=== PATIENT | male | born 1955 | race Caucasian/White ===

== ENCOUNTER 2021-10-12 17:16 | Emergency (ER) | payer MEDICARE, SELFPAY ==
--- NOTE | ~2021-10-12 | CT_ITS ---
EXAMINATION: CT brain wo con DATE: 10/12/2021 18:03 INDICATION: confusion TECHNIQUE: Computed tomography (CT) of the head was performed without intravenous contrast. The mA wa s adjusted according to patient size. Iterative reconstruction technique was employed. The dose-lengt h product was 605.33 mGy-cm. COMPARISON: None FINDINGS: No acute intracranial hemorrhage or extra-axial fluid collection. No hydrocephalus, mass, or herniation. Hypodensity in the left basal ganglia, affecting the external capsule, caudate head, and lentiform nu cleus. Unremarkable dural venous sinus attenuation. No acute osseous abnormality. Trace bilateral mastoid effusions, otherwise the aerated spaces are clear. Mild atrophy and chronic white matter change. Atherosclerotic intracranial arterial calcifications. IMPRESSION: Acute/subacute left basal ganglia infarct. Result communicated to Dr. Guidry telephonically by Dr. Roman at 6:12 PM on 10/12/2021. Reviewed, dictated and finalized at location K. IMPRESSION: Acute/subacute left basal ganglia infarct. Result communicated to Dr. Guidry telephonically by Dr. Roman at 6:12 PM on .
[2021-10-12 17:18] VITALS: BP 183/85; PULSE 62; RESP 16; TEMP 36.1; O2SAT 100
[2021-10-12 17:28] VITALS: BP 167/77; PULSE 66; RESP 18; O2SAT 98
--- NOTE | 2021-10-12 17:29 | PC.NURSE ---
PT states i lost my speech . pt reports this began three days ago. Pt is a poor historian.
--- NOTE | 2021-10-12 17:35 | ECG_ITS ---
Measurements Intervals [place] Rate: 64 P: 35 NC: 160 QRS: 14 QRSD: 98 T: 30 QT: 403 QTc: 418 Interpretive Statements SINUS RHYTHM WITH SINUS ARRHYTHMIA NORMAL ECG NO PREVIOUS ECG AVAILABLE FOR COMPARISON Electronically Signed On 10-13-2021 11:15:48 CDT by Uri Saravia M.D.
--- NOTE | 2021-10-12 17:45 | ED.GENADULT ---
HPI - General Adult General Chief complaint: Unspecified Stated complaint: I have lost my ability to do math Time Seen by Provider: 10/12/21 17:25 Source: patient History of Present Illness HPI narrative: Patient presents with difficulty doing math. Reports he has had symptoms for approximately 3 days he was talking to a friend on phone was told that he should be evaluated because he is acting differently. He also reports ringing in his right ear he denied a headache at the time of my evaluation denies any recent cough, congestion, nausea, vomiting. Denies any past medical history but does report seeing a primary care provider in [place] on a regular basis. Related Data Home Medications Medication Instructions Recorded Confirmed No Home Medications 10/12/21 10/12/21 Allergies Allergy/AdvReac Type Severity Reaction Status Date / Time NKDA Allergy Mild Uncoded 07/10/06 09:16 Review of Systems Review of Systems: CONSTITUTIONAL: Denies fever, chills, or sweats. EYES: Denies visual changes, redness, or discharge. ENT: Denies rhinorrhea, congestion, sore throat, or otalgia. CARDIOVASCULAR: Denies chest pain, palpitations, or edema. RESPIRATORY: Denies cough or dyspnea. GASTROINTESTINAL: Denies abdominal pain, nausea, vomiting, or diarrhea. GENITOURINARY: Denies dysuria or hematuria. SKIN: Denies rash or itching. MUSCULOSKELETAL: Denies back pain, joint pain, or myalgia. NEUROLOGIC: Denies headache, numbness, dizziness, or weakness. PSYCHIATRIC: Denies anxiety or depression. All systems reviewed & are unremarkable except as noted in HPI and below PMFSH Social History Social History Smoking status: Never smoker Exam Narrative: GENERAL: Well-appearing, well-nourished, and in no acute distress. HEAD: Normocephalic, atraumatic. EYES: PERRLA and EOMI. ENT: Nares clear, no rhinorrhea or epistaxis. Mucous membranes moist. NECK: Supple. No masses. No JVD CHEST: Clear to auscultation. No respiratory distress. No wheezes rales or rhonchi HEART: Regular rate and rhythm. No murmur heard. Normal peripheral pulses. ABDOMEN: Soft, nontender, nondistended, normal active bowel sounds. EXTREMITIES: Normal range of motion. No edema. SKIN: Warm, dry, no rash. NEURO: Cranial nerves II through XII are intact patient is 5 out of 5 strength in all extremities sensation intact light touch in all extremities alert and oriented to self he is able to identify that he is in a hospital given multiple choice. He was able to identify the president when given multiple choice and believes the year is 2026 PSYCH: Normal mood and affect. Course Reevaluation(s) Reevaluation #1: Patient is comfortable with the transfer plan has been no significant change in his neurological exam. Date: 10/12/21 Time: 18:56 Consultations Consultation #1: Stroke team at [facility] consulted who accepted for admission. Date: 10/12/21 Time: 18:56 Vital Signs Vital signs: Vital Signs Temperature 36.1 C L 10/12/21 17:18 Pulse Rate 62 10/12/21 17:18 Respiratory Rate 16 10/12/21 17:18 Blood Pressure 183/85 H 10/12/21 17:18 Pulse Oximetry 100 10/12/21 17:18 Temperature 36.1 C L 10/12/21 17:18 Pulse Rate 73 10/12/21 21:10 Respiratory Rate 22 H 10/12/21 21:10 Blood Pressure 157/81 H 10/12/21 21:10 Pulse Oximetry 100 10/12/21 21:10 Medical Decision Making [facility] Narrative Medical decision making narrative: Patient presented with difficulty with math and word finding difficulty as well as confusion noted by a friend. Patient is disoriented on exam the remainder of neurological exam is reassuring. Labs and imaging obtained. CT scan was concerning for acute versus subacute infarct. Patient reports symptoms started 3 days ago favoring subacute process. Given CT findings and change in mental status patient benefit from further inpatient evaluation and imaging. No neurolo
[2021-10-12 17:50] LABS: Basophils Percent Auto 0.5 % (0.2-1.2); Eosinophils Absolute Auto 0.1 K/mm3 (0-0.3); Eosinophils Percent Auto 0.9 % (0-4.4); Hematocrit 47.3 % (42.0-52.0); Hemoglobin 16.2 g/dL (14.0-18.0); Immature Granulocyte Absolute 0.01 K/mm3 (0.00-0.031); Immature Granulocyte Percent A 0.2 % (0-0.5); Lymphocytes Absolute Auto 1.78 K/mm3 (0.9-3.2); Lymphocytes Percent Auto 31.5 % (18.3-44.2); Mean Corpuscular HGB Conc 34.2 g/dl (32-36); Mean Corpuscular Hemoglobin 29.9 pg (26-34); Mean Corpuscular Volume 87.4 fl (80-100); Mean Platelet Volume 9.4 fl (7.4-10.4); Monocytes Absolute Auto 0.3 K/mm3 (0.1-0.6); Monocytes Percent Auto 5.8 % (2.6-8.5); Neutrophils Absolute Auto 3.5 K/mm3 (1.3-6.7); Neutrophils Percent Auto 61.1 % (45.5-73.1); Platelet Count Result 245 k/mm3 (150-375); Red Blood Count 5.41 M/mm3 (4.6-6.20); Red Cell Distribution Width 13.4 % (11.5-14.5); White Blood Count 5.7 K/mm3 (4.5-10.0)
[2021-10-12] MEDS: SODIUM CHLORIDE 0.9% IV 500 ML 999 ML IV CONT (17:51)
--- NOTE | 2021-10-12 17:56 | PC.NURSE ---
Pt to ct via stretcher. Bedside report given to Tammy BELL
[2021-10-12 17:57] LABS: Glucose Point of Care 94 mg/dl (65-105)
[2021-10-12 17:59] LABS: Ammonia < 9 umol/L (9-30); Ethanol < 10 mg/dL (<10)
[2021-10-12 17:59] LABS: Lactic Acid Reflex 1.3 mmol/L (0.7-2.1)
[2021-10-12 18:01] LABS: Prothrombin Time 13.1 Seconds (11.1-14.7)
[2021-10-12 18:02] LABS: Partial Thromboplastin Time 28.8 SECONDS (22.3-36.8)
--- NOTE | 2021-10-12 18:04 | PC.NURSE ---
Assumed care of pt at this time. Pt in imaging.
[2021-10-12 18:38] VITALS: BP 166/70; PULSE 69; RESP 16; O2SAT 99
[2021-10-12 18:51] LABS: Alanine Aminotransferase 15 U/L (4-50); Albumin Level 4.5 g/dL (3.5-5.1); Alkaline Phosphatase 83 U/L (38-126); Anion Gap 11 mmol/L (8-16); Aspartate Amino Transferase 27 U/L (17-59); Bilirubin,Total 0.6 mg/dL (0.2-1.3); Blood Urea Nitrogen 17 mg/dL (9-20); Calcium 9.4 mg/dL (8.4-10.2); Carbon Dioxide 23 mmol/L (22-30); Chloride 105 mmol/L (98-107); Creatine Kinase 46 U/L (55-170); Estimated CRCL calculation 63 ml/min; Estimated Glomerular Filt Rate > 60; Glucose 89 mg/dL (65-110); Potassium 4.2 mmol/L (3.4-5.0); Sodium 139 mmol/L (137-145)
--- NOTE | 2021-10-12 19:12 | PC.NURSE ---
Pt unable to provide urine sample at this time. Per EDP, no need for straight catheter.
[2021-10-12 20:23] VITALS: BP 165/72; PULSE 62; RESP 20; O2SAT 100
[2021-10-12 21:10] VITALS: BP 157/81; PULSE 73; RESP 22; O2SAT 100
== END 2021-10-12 21:14 | disposition short-term general hospital (02) ==
PROVIDERS: Emergency Provider Emergency Medicine; PCP Emergency Medicine
DX: I63.9 Cerebral infarction, unspecified (principal)
CPT/HCPCS: 36415; 70450; 80053; 80307; 82140; 82550; 82948; 83605; 84443; 85025; 85610; 85730; 93005; 96360; 99285; J7040

== ENCOUNTER 2021-10-15 15:10 | Observation (INO) | payer MEDICARE, SELFPAY ==
[2021-10-15] VITALS (23 sets, daily range): BP systolic 138–154; BP diastolic 66–83; PULSE 57–87; RESP 11–19; TEMP 36.1–36.4; O2SAT 96–100; BMI 30.2
--- NOTE | ~2021-10-15 | CT_ITS ---
EXAMINATION: CT brain wo con DATE: 10/15/2021 16:07 INDICATION: Altered mental status. TECHNIQUE: Computed tomography (CT) of the head was performed without intravenous contrast. The mA wa s adjusted according to patient size. Iterative reconstruction technique was employed. The dose-lengt h product was 605.33 mGy-cm. COMPARISON: Head CT 10/12/2021 FINDINGS: There is an infarct involving the left basal ganglia and anterior limb left internal capsul e. There are small areas of cystic encephalomalacia in the left frontoparietal deep white matter. The re is no intracranial hemorrhage or abnormal mass lesion. The ventricles are normal in size. There is mild mucosal thickening in the paranasal sinuses. There are small mastoid effusions. The orbits are normal. IMPRESSION: 1. Infarct again seen involving the left basal ganglia and anterior limb left internal capsule, which may be subacute or chronic. 2. Small areas of chronic encephalomalacia in the left frontoparietal deep white matter. Reviewed, dictated and finalized at location B. IMPRESSION: 1. Infarct again seen involving the left basal ganglia and anterior limb left i nternal capsule, which may be subacute or chronic. 2. Small areas of chronic encephalomalacia in the left frontoparietal deep whit e matter.
--- NOTE | 2021-10-15 15:23 | PC.NURSE ---
Patient's nephew Aisha Bauer [phone]
--- NOTE | 2021-10-15 15:51 | ECG_ITS ---
Measurements Intervals [place] Rate: 64 P: 36 NH: 162 QRS: 24 QRSD: 96 T: 32 QT: 397 QTc: 412 Interpretive Statements SINUS RHYTHM NORMAL ECG COMPARED TO ECG 10/12/2021 17:50:28 NO SIGNIFICANT CHANGES Electronically Signed On 10-16-2021 11:38:51 CDT by Wilfrido Romero M.D.
[2021-10-15] MEDS: SODIUM CHLORIDE 0.9% IV 500 ML 999 ML IV CONT (16:29)
--- NOTE | 2021-10-15 16:39 | ED.AMS ---
HPI - Altered Mental Status General Chief Complaint: Altered Mental Status Stated Complaint: recent stroke, confusion Time Seen by Provider: 10/15/21 15:46 Source: family, RN notes reviewed and old records reviewed History of Present Illness HPI narrative: Patient brought in for altered mental status. Patient was seen a couple days ago diagnosed with concern for stroke and transferred to [facility]. Today he was brought in by his nephew. Reports he was called by the patient today and he requested him to help cut his grass and nephew came over to see him and the patient told the story that he left the hospital cannot tell the nephew the name of the hospital walked [place] on the [place] was picked up by an officer and brought to his house. Patient did seem confused to the nephew so we returned him to the ER for further evaluation. Related Data Home Medications Medication Instructions Recorded Confirmed No Home Medications 10/12/21 10/12/21 Allergies Allergy/AdvReac Type Severity Reaction Status Date / Time NKDA Allergy Mild Uncoded 07/10/06 09:16 Review of Systems Review of Systems: ROS unobtainable: Yes unobtainable due to medical condition (Patient does not answer questions appropriately) [facility] Social History Social History Smoking status: Never smoker Exam Narrative: GENERAL: Well-appearing, well-nourished, and in no acute distress. HEAD: Normocephalic, atraumatic. EYES: PERRLA and EOMI. ENT: Nares clear, no rhinorrhea or epistaxis. Mucous membranes moist. NECK: Supple. No masses. No JVD CHEST: Clear to auscultation. No respiratory distress. No wheezes rales or rhonchi HEART: Regular rate and rhythm. No murmur heard. Normal peripheral pulses. ABDOMEN: Soft, nontender, nondistended, normal active bowel sounds. EXTREMITIES: Normal range of motion. No edema. SKIN: Warm, dry, no rash. NEURO: No focal deficits. Alert PSYCH: Normal mood and affect. Course Reevaluation(s) Reevaluation #1: Patient with no significant change in his mental status I contacted [facility] they completed his stroke work-up and recommended aspirin and Plavix he was staying at that facility for rehab placement. Patient eloped because he was bored . Patient remains confused thinks it is 2025 he is unsure of where he is located at and is unsure of his situation. Due to his confusion patient does not demonstrate capacity and will need to be admitted for further evaluation and likely placement. Family is comfortable with inpatient plan. Case discussed with hospitalist team will admit for further evaluation Date: 10/15/21 Time: 20:10 Vital Signs Vital signs: Vital Signs Temperature 36.1 C L 10/15/21 15:17 Pulse Rate 87 10/15/21 15:17 Respiratory Rate 18 10/15/21 15:17 Blood Pressure 150/81 H 10/15/21 15:17 Pulse Oximetry 100 10/15/21 15:17 Temperature 36.1 C L 10/15/21 15:17 Pulse Rate 87 10/15/21 15:17 Respiratory Rate 18 10/15/21 15:17 Blood Pressure 150/81 H 10/15/21 15:17 Pulse Oximetry 100 10/15/21 15:17 MDM - Altered Mental Status MDM Narrative Medical decision making narrative: Patient is brought in by family for confusion. He was recently eloped from [facility] after completion of his stroke evaluation and pending rehab facility. Patient remains confused but there is been no significant change in his mental status from a few days ago. Due to his confusion patient will need rehab placement. Family is comfortable the inpatient plan and evaluation for placement. Lab Data Result diagrams: 10/15/21 16:32 10/15/21 16:32 Labs: Lab Results 10/15/21 10/15/21 10/15/21 Range/Units 16:32 16:32 16:32 WBC 4.5 (4.5-10.0) K/mm3 RBC 5.30 (4.6-6.20) M/mm3 Hgb 16.0 (14.0-18.0) g/dL Hct 45.6 (42.0-52.0) % MCV 86.0 (80-100) fl MCH 30.2 (26-34) pg MCHC 35.1
[2021-10-15 16:42] LABS: Basophils Percent Auto 0.7 % (0.2-1.2); Eosinophils Absolute Auto 0.1 K/mm3 (0-0.3); Eosinophils Percent Auto 1.6 % (0-4.4); Hematocrit 45.6 % (42.0-52.0); Immature Granulocyte Absolute 0.01 K/mm3 (0.00-0.031); Immature Granulocyte Percent A 0.2 % (0-0.5); Lymphocytes Absolute Auto 1.42 K/mm3 (0.9-3.2); Lymphocytes Percent Auto 31.8 % (18.3-44.2); Mean Corpuscular HGB Conc 35.1 g/dl (32-36); Mean Corpuscular Hemoglobin 30.2 pg (26-34); Mean Platelet Volume 9.4 fl (7.4-10.4); Monocytes Absolute Auto 0.3 K/mm3 (0.1-0.6); Monocytes Percent Auto 6.3 % (2.6-8.5); Neutrophils Absolute Auto 2.7 K/mm3 (1.3-6.7); Neutrophils Percent Auto 59.4 % (45.5-73.1); Platelet Count Result 227 k/mm3 (150-375); Red Cell Distribution Width 13.5 % (11.5-14.5); White Blood Count 4.5 K/mm3 (4.5-10.0)
[2021-10-15 16:49] LABS: Ammonia < 9 umol/L (9-30); Ethanol < 10 mg/dL (<10)
[2021-10-15 16:51] LABS: INR 1.1
[2021-10-15 16:52] LABS: Partial Thromboplastin Time 28.3 SECONDS (22.3-36.8)
[2021-10-15 17:02] LABS: Alanine Aminotransferase 16 U/L (4-50); Albumin Level 4.3 g/dL (3.5-5.1); Alkaline Phosphatase 85 U/L (38-126); Anion Gap 10 mmol/L (8-16); Aspartate Amino Transferase 24 U/L (17-59); Bilirubin,Total 0.6 mg/dL (0.2-1.3); Blood Urea Nitrogen 18 mg/dL (9-20); Calcium 9.4 mg/dL (8.4-10.2); Carbon Dioxide 22 mmol/L (22-30); Chloride 110 mmol/L (98-107); Creatine Kinase 83 U/L (55-170); Estimated CRCL calculation 62 ml/min; Estimated Glomerular Filt Rate > 60; Glucose 91 mg/dL (65-110); Potassium 3.6 mmol/L (3.4-5.0); Sodium 142 mmol/L (137-145)
--- NOTE | 2021-10-15 17:47 | PC.NURSE ---
Attempted to straight cath pt using size 15 and size 8 fr catheters. Unable to advance catheter. ERP aware.
--- NOTE | 2021-10-15 22:54 | PM.IMHP ---
H&P: HPI History of Present Illness Date/Time: 10/15/21 21:40 Chief Complaint: confusion, recent CVA Narrative: 66-year-old male with past medical history of recent CVA who was brought into the ER by family member due to confusion. The patient had been evaluated in our ER on the 12 of October due to complaints of not being able to do math that started on the . The patient had called a friend and was reportedly acting differently and the friend recommended the patient go to the ER for evaluation. The friend had noticed the patient having difficulty with confusion and word-finding. He had a CT scan performed which demonstrated acute versus subacute infarct in the left basal ganglia and evidence of and evidence of encephalomalacia from prior infarcts. The patient was subsequently transferred to [facility] for evaluation by the neurologic service. Evidently the patient had completed the evaluation for CVA including MRI at [facility]. Her it was being arranged for the patient to be discharged to rehab services when the patient eloped from the hospital. It is unclear how the patient left hospital but he states that he was walking along the highway and that the arson and bomb investigator picked him up in drove him home. Today the patient had called his nephew requesting that his nephew come to help cut his grass. The nephew came over and found the patient confused and realized that the patient should probably still be at the hospital so brought him in for evaluation. The patient reported that he eloped from [facility] also look as he was bored. The patient thought the year was 2025 upon initial evaluation in the ER. He was initially on aware of which hospital he was at but did correctly identify the hospital in year at the time of my evaluation which was shortly after the ER physician's evaluation. The patient was still confused as to the current situation. He could not remember why he was at the hospital and thought that we were keeping in the hospital because we were concerned about his diet and appetite. Both family and staff are concerned about the patient's capacity to make decisions. His short-term memory appears impaired. Review of Systems Review of Systems: The patient denies any significant review of systems. Twelve systems were reviewed but limited as patient is a poor historian. Patient clearly has significant recent short-term memory impairment. [facility] Past Medical History Medical History (Updated 10/16/21 @ 03:52 by Ninoska Reyes DO) CVA (cerebral vascular accident) Hepatitis C Surgical History Surgical History (Updated 10/16/21 @ 03:52 by Ninoska Reyes DO) No significant past surgical history Family History Family History (Updated 10/16/21 @ 03:52 by Ninoska Reyes DO) Other Unknown family medical history Social History Social History (Updated 10/16/21 @ 03:54 by Ninoska Reyes DO) Social History: The patient reported that he smoked for about 6 months when he was younger. The accuracy of this statement is unclear as patient is having difficulty with his memory. He reports that he drinks 2-3 beers once or twice a week. He denies any history of illicit substance use. He is single and lives alone. He does not have any children. He is retired airplane machinist supervisor. Smoking status: Former smoker Second hand tobacco smoke exposure: No Alcohol intake: unknown Substance use: unknown Spiritual care concerns: No Meds Home Medications and Allergies Home Medications Medication Instructions Recorded Confirmed Type No Home Medications 10/12/21 10/16/21 History Allergies Allergy/AdvReac Type Severity Reaction Status Date / Time NKDA Allergy Mild Unknown Uncoded 10/15/21 21:06 Vital Signs Vital Signs - 24 hr 10/15/21 15:17 10/15/21 15:44 10/15/21 15:45 Temperature 96.9 F L Pulse Rate 87 79 63 Respiratory Rate 18 18 17 Blood Pr
[2021-10-16 06:00] VITALS: BP 122/64
[2021-10-16 08:00] VITALS: O2SAT 98
[2021-10-16 08:34] VITALS: O2SAT 98
[2021-10-16] MEDS: CLOPIDOGREL BISULFATE 75 MG TABLET PO (09:25)
[2021-10-16] MEDS: ENOXAPARIN 40 MG/0.4 ML SYRINGE SUB-Q (09:25)
[2021-10-16] MEDS: ASPIRIN 81 MG ENTERIC TABLET PO (09:25)
[2021-10-16 10:38] LABS: Appearance Urine Cloudy (Clear); Bilirubin Urine 1+ (Negative); Blood Urine 2+ (Negative); Color Urine Yellow (Yellow); Glucose Urine UA Negative (Negative); Ketones Urine 1+ mg/dL (Negative); Leukocyte Esterase Ur Trace LEU/UL (Negative); Nitrate Urine Negative (Negative); Protein Urine Trace mg/dL (Negative); Specific Grav Ur >= 1.030 (1.001-1.035); Urobilinogen Urine 0.2 mg/dL (<2.0); pH Urine 5.5 (5.0-9.0)
[2021-10-16 10:43] LABS: Mucus Urine Heavy /lpf; RBC Urine 21-50 /hpf (0-2); Squamous Epithelial Cell Urine Rare /hpf (Few); WBC Urine 31-50 /hpf
[2021-10-16 10:44] LABS: Add Urine Microscopic? YES
[2021-10-16 10:51] LABS: Amphetamine Screen Urine Negative (Negative); Barbiturate Screen Urine Negative (Negative); Benzodiazepines Screen Urine Negative (Negative); Cannabinoid Screen Urine Positive (Negative); Cocaine Screen Urine Negative (Negative); Methadone Screen Urine Negative (Negative); Opiate Screen Urine Negative (Negative); Phencyclidine Screen Urine Negative (Negative)
[2021-10-16 14:00] VITALS: BP 131/57; PULSE 73; RESP 18; TEMP 34.7; O2SAT 99
--- NOTE | 2021-10-16 14:51 | PM.IMPN ---
Progress Note: A&P Assessment and Plan (1) Recent cerebrovascular accident (CVA): Code(s): Z86.73 - Personal history of transient ischemic attack (TIA), and cerebral infarction without residual deficits Status: Acute (2) Altered mental status: Qualifiers: Altered mental status type: unspecified Qualified Code(s): R41.82 - Altered mental status, unspecified Code(s): R41.82 - Altered mental status, unspecified Status: Acute Additional Plan The patient had recent CVA and had complete workup at [facility]. Records were requested from outside facility. CT did a demonstrated stable infarct of the left basal ganglia and anterior limb of the left internal capsule which may be subacute or chronic. In small areas of encephalomalacia in the left frontal parietal deep white matter. The patient was being prepared to be sent to a rehab facility from [facility] but the patient eloped from the hospital. Today the patient also did not want to stay in the hospital but he does not have the capacity to make that decision. Patient is alert and oriented x3 but is not aware of the situation. When asked why we wanted to keep him in the hospital even after was explained to him that he was having issues with his memory he stated that we wanted to keep him in the hospital to monitor his diet. PT and OT will be consulted for evaluation rehab placement. Care coordination has been consulted. ER physician did discuss the patient's case with the neurologic service at [facility]. They stated that they were going to discharge the patient on Plavix and low-dose aspirin. These medications have been ordered. Patient has been admitted as observation status. 10/16/2021 interval history: patient remains clinically stable is still very confused unable to provide any review of symptom or details, he seems to realize that there is a problem with his memory, patient repeat CT scan of the head did not show any significant change compared to CT scan of the head on 10/12. will have a PT OT evaluate the patient. Subjective Date/time seen: 10/16/21 14:51 HPI-Narrative: 66-year-old male with past medical history of recent CVA who was brought into the ER by family member due to confusion. The patient had been evaluated in our ER on the 12 of October due to complaints of not being able to do math that started on the . The patient had called a friend and was reportedly acting differently and the friend recommended the patient go to the ER for evaluation. The friend had noticed the patient having difficulty with confusion and word-finding. He had a CT scan performed which demonstrated acute versus subacute infarct in the left basal ganglia and evidence of and evidence of encephalomalacia from prior infarcts. The patient was subsequently transferred to [facility] for evaluation by the neurologic service. Evidently the patient had completed the evaluation for CVA including MRI at [facility]. Her it was being arranged for the patient to be discharged to rehab services when the patient eloped from the hospital. It is unclear how the patient left hospital but he states that he was walking along the highway and that the scorekeeper picked him up in drove him home. Today the patient had called his nephew requesting that his nephew come to help cut his grass. The nephew came over and found the patient confused and realized that the patient should probably still be at the hospital so brought him in for evaluation. The patient reported that he eloped from [facility] also look as he was bored. The patient thought the year was 2025 upon initial evaluation in the ER. He was initially on aware of which hospital he was at but did correctly identify the hospital in year at the time of my evaluation which was shortly after the ER physician's evaluation. The patient was still confused as to the curr
--- NOTE | 2021-10-16 15:47 | PM.DS ---
DS: Admitting Diagnosis Discharge Date 10/16/2021 Admitting Diagnosis confusion, recent CVA DS: Discharge Diagnosis Discharge Diagnosis (1) Recent cerebrovascular accident (CVA): Code(s): Z86.73 - Personal history of transient ischemic attack (TIA), and cerebral infarction without residual deficits Status: Acute (2) Altered mental status: Qualifiers: Altered mental status type: unspecified Qualified Code(s): R41.82 - Altered mental status, unspecified Code(s): R41.82 - Altered mental status, unspecified Status: Acute DS: Summary Hospital Course Reason for hospitalization: Chief Complaint: confusion, recent CVA Narrative: 66-year-old male with past medical history of recent CVA who was brought into the ER by family member due to confusion. The patient had been evaluated in our ER on the 12 of October due to complaints of not being able to do math that started on the . The patient had called a friend and was reportedly acting differently and the friend recommended the patient go to the ER for evaluation. The friend had noticed the patient having difficulty with confusion and word-finding. He had a CT scan performed which demonstrated acute versus subacute infarct in the left basal ganglia and evidence of and evidence of encephalomalacia from prior infarcts. The patient was subsequently transferred to [facility] for evaluation by the neurologic service. Evidently the patient had completed the evaluation for CVA including MRI at [facility]. Her it was being arranged for the patient to be discharged to rehab services when the patient eloped from the hospital. It is unclear how the patient left hospital but he states that he was walking along the highway and that the associate consulting engineer picked him up in drove him home. Today the patient had called his nephew requesting that his nephew come to help cut his grass. The nephew came over and found the patient confused and realized that the patient should probably still be at the hospital so brought him in for evaluation. The patient reported that he eloped from [facility] also look as he was bored. The patient thought the year was 2025 upon initial evaluation in the ER. He was initially on aware of which hospital he was at but did correctly identify the hospital in year at the time of my evaluation which was shortly after the ER physician's evaluation. The patient was still confused as to the current situation. He could not remember why he was at the hospital and thought that we were keeping in the hospital because we were concerned about his diet and appetite. Both family and staff are concerned about the patient's capacity to make decisions. His short-term memory appears impaired. Hospital Course: 10/16/2021 interval history: patient remains clinically stable is still very confused unable to provide any review of symptom or details, he seems to realize that there is a problem with his memory, patient repeat CT scan of the head did not show any significant change compared to CT scan of the head on 10/12. will have a PT OT evaluate the patient. Patient is being discharged with his nephew who will stay with the patient and monitor, patient to follow up with his primary care provider as soon as possible, patient is instructed is any symptoms redevelop to go to nearest ER. Status at Discharge Functional status at discharge: uses cane/walker Overall status at discharge: patient is not back to baseline Time Spent with Patient Time attestation: Total time spent providing and/or coordinating discharge services: Patient was seen and examined at the time of the discharge Condition at discharge is stable Code status: Full code. Time spent preparing discharge summary, discharge medications, discussing discharge planning with returned case inspector and patient is 35 minutes. Exam Narrative: Patient is comfortable, NAD HEENT: eyes are manuela
== END 2021-10-16 16:54 | disposition home or self-care (01) ==
LOC: ANHED 20:14 → ANH3MEDSUR 10-16 10:48
PROVIDERS: Admitting Provider Internal Medicine; Emergency Provider Emergency Medicine; PCP Emergency Medicine; Visit Provider Family Medicine
DX: R41.82 Altered mental status, unspecified (principal); Z86.73 Personal history of transient ischemic attack (TIA), and cerebral infarction without residual deficits; G93.89 Other specified disorders of brain; Z87.891 Personal history of nicotine dependence
CPT/HCPCS: 36415; 51701; 70450; 80053; 80307; 81001; 82140; 82550; 85025; 85610; 85730; 87086; 93005; 96360; 96372; 97161; 97166; 99285; A9270; G0378; J1650; J7040

== ENCOUNTER 2022-07-15 12:22 | Inpatient (IN) | payer MEDICARE, SELFPAY ==
[2022-07-15] VITALS (7 sets, daily range): BP systolic 145–190; BP diastolic 69–94; PULSE 65–108; RESP 14–18; TEMP 35.7–36.8; O2SAT 99–100; BMI 29.0
--- NOTE | ~2022-07-15 | XR_ITS ---
Portable chest x-ray Comparison: None Clinical History: Cough Findings: Lungs are clear, without focal consolidation or pleural effusion. Cardiomediastinal silho uette is unremarkable. Bones and soft tissues are unremarkable. Impression: Normal chest. Reviewed, dictated and finalized at location . UCT SUPPORT ANALYST Impression: Normal chest.
--- NOTE | ~2022-07-15 | CT_ITS ---
EXAMINATION: CTA brain carotid DATE: 07/15/2022 14:58 INDICATION: Left parietal lobe infarct. TECHNIQUE: Computed tomographic angiography (CTA) of the head was performed with 100 mL Omnipaque-350 intravenous contrast. CTA of the neck was performed with intravenous contrast. Automated exposure co ntrol and iterative reconstruction technique were employed. The dose-length product was 1136.45 mGy-c m. Maximum intensity projection and volume rendered 3D-reconstructions were created by the technologi st on a separate workstation. COMPARISON: Head CT 07/15/2022, 10/15/2021 FINDINGS: HEAD CTA: There is old infarct involving the left basal ganglia and anterior limb left internal capsu le. There is an infarct in left parietal lobe. There is no intracranial hemorrhage or abnormal mass l esion. There is ex vacuo dilatation of anterior body and frontal horn of left lateral ventricle. Ther e is mild mucosal thickening in the paranasal sinuses. The mastoid air cells are normal. The orbits a re normal. The vertebral arteries are codominant. There is no significant stenosis of basilar artery or the posterior cerebral arteries. There is no significant stenosis of the intracranial internal car otid arteries or anterior cerebral arteries. There is severe stenosis of left M1 middle cerebral edward ry. Anterior communicating artery is normal. The posterior communicating arteries are normal. There i s no aneurysm. NECK CTA: There is mild scarring at the lung apices. There are nodules in the thyroid measuring up to 1.7 cm on the left. There are no pathologically enlarged lymph nodes. There is a severe stenosis of the vertebral arteries. There is plaque in the proximal internal carotid arteries. There is 0% stenos is of the proximal right internal carotid artery relative to normal distal artery lumen diameter (AGUSTIN CET criteria). There is 0% stenosis of the proximal left internal carotid artery relative to normal d istal artery lumen diameter. There is mild cervical spondylosis. IMPRESSION: 1. Infarct in left parietal lobe, new from 10/15/2021, likely acute or subacute. 2. Severe stenosis of left M1 middle cerebral artery suspicious for an embolus. I called this result to Dr. Wood. 3. Old infarct involving the left basal ganglia and anterior limb left internal capsule. 4. 0% stenosis of the proximal internal carotid arteries relative to normal distal artery lumen diame ters (NASCET criteria). Reviewed, dictated and finalized at location A. SHAKER IMPRESSION: 1. Infarct in left parietal lobe, new from 10/15/2021, likely acute or subacute. 2. Severe stenosis of left M1 middle cerebral artery suspicious for an embolus. I called this result to Dr. Wood. 3. Old infarct involving the left basal ganglia and anterior limb left internal capsule. 4. 0% stenosis of the proximal internal carotid arteries relative to normal dis darrell artery lumen diameters (NASCET criteria).
--- NOTE | ~2022-07-15 | CT_ITS ---
EXAMINATION: CT brain wo con DATE: 07/15/2022 13:31 INDICATION: Confusion for one week. Altered mental status. TECHNIQUE: Computed tomography (CT) of the head was performed without intravenous contrast. The mA wa s adjusted according to patient size. Iterative reconstruction technique was employed. Exam dose: 60 5.33 mGy-cm total exam DLP. COMPARISON: 10/15/2021 CT brain FINDINGS: Prominent chronic lacunar infarct involving left basal ganglia and left frontal periventric ular area with compensatory dilatation of the left frontal horn. There is focal diminished attenuation in the posterior left parietal cerebral hemisphere consistent w ith recent or subacute cerebrovascular accident. No intracranial mass lesion or hemorrhage, midline shift or significant mass effect effect is noted. Bilateral carotid siphon internal carotid artery calcifications. There is nonspecific diminished atte nuation of the cerebral white matter, likely due to chronic small vessel ischemic changes. No subdural or epidural hematoma. Persistence of the metopic suture, anatomic variant. The paranasal sinuses and mastoid air cells are unremarkable. No fracture or bone destruction of the cranial vault. IMPRESSION: Recent or subacute focal infarct in the posterior left parietal area Chronic lacunar infarct of left basal ganglia and frontal periventricular area Cerebral atherosclerosis and chronic small vessel ischemic changes of cerebral white matter Reviewed, dictated and finalized at Location A. Reviewed, dictated and finalized at location L. CLUB TRAVEL COUNSELOR IMPRESSION: Recent or subacute focal infarct in the posterior left parietal ar ea Chronic lacunar infarct of left basal ganglia and frontal periventricular area Cerebral atherosclerosis and chronic small vessel ischemic changes of cerebral white matter
--- NOTE | ~2022-07-15 | MR_ITS ---
EXAMINATION: MR brain/brain stem wo con DATE: 07/16/2022 15:59 INDICATION: Acute stroke. TECHNIQUE: Magnetic resonance imaging (MRI) of the brain and brainstem was performed without intraven ous contrast. COMPARISON: Brain MRI 07/15/2022 FINDINGS: There are patchy areas of acute infarct involving left temporal lobe, left parietal lobe, l eft frontoparietal region, and left temporal occipital region in the expected distribution of left mi ddle cerebral artery. There is an old infarct involving the left basal ganglia and anterior limb left internal capsule with old blood products. There are scattered areas of nonspecific increased T2-weig hted signal intensity in the cerebral white matter. There is no abnormal mass lesion. There is ex vac uo dilatation of left lateral ventricle. The orbits are normal. There are mucous retention cysts in t he maxillary sinuses. The mastoid air cells are normal. IMPRESSION: 1. Patchy areas of acute infarct involving left temporal lobe, left parietal lobe, left frontal parie darrell region, and left temporal occipital region. 2. Old infarct involving the left basal ganglia and anterior limb left internal capsule. 3. Mild nonspecific cerebral white matter disease, which likely represents chronic small vessel ische frederick disease. Reviewed, dictated and finalized at location A. UNTING REPRESENTATIVE IMPRESSION: 1. Patchy areas of acute infarct involving left temporal lobe, left parietal lo be, left frontal parietal region, and left temporal occipital region. 2. Old infarct involving the left basal ganglia and anterior limb left internal capsule. 3. Mild nonspecific cerebral white matter disease, which likely represents benchroom shop optician toño small vessel ischemic disease.
--- NOTE | 2022-07-15 13:15 | ED.AMS ---
HPI - Altered Mental Status General Chief Complaint: Altered Mental Status Stated Complaint: Pt comes from office. sister states has ams Time Seen by Provider: 07/15/22 12:52 History of Present Illness HPI narrative: Patient is a 67-year-old male presenting with altered mental status. Patient's sister states that for the last week he has been increasingly confused. States that he could not figure out how to access any of his bank accounts. States that he had a similar episode last year and they think he might have had a mini stroke at that time. Patient currently denies any complaints. He denies chest pain, headache, numbness or weakness, vision changes, abdominal pain, vomiting, shortness of breath. He is oriented to self and place but not time. When asked about his hospitalization last year, patient states it was like a man cave, it was not like a hospital so I left . Related Data Home Medications Medication Instructions Recorded Confirmed No Home Medications 07/15/22 07/15/22 Allergies Allergy/AdvReac Type Severity Reaction Status Date / Time NKDA Allergy Mild Unknown Uncoded 10/15/21 21:06 Review of Systems Review of Systems: All systems reviewed & are unremarkable except as noted in HPI and below PMFSH Past Medical History Medical History Cerebrovascular accident Dyslipidemia Hepatitis C Hypertension Surgical History Surgical History No significant past surgical history Family History Family History Other Unknown family medical history Social History Social History Social History: Patient states he lives in his own home and [place]. He is single with no children. Brother Chris and sister Dianelys live nearby. He has a nephew that helps out if needed as well. 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 Smoked briefly as a young man. Denies alcohol abuse, drinks maybe 2 to 3 beers a couple of times a week. Occasional marijuana use. Surrogate decision maker: Alyce Bauer (nephew). Code status: Full code. Spiritual care concerns: No Exam Narrative: GENERAL: Well-appearing, well-nourished, and in no acute distress. HEAD: Normocephalic, atraumatic. EYES: PERRLA and EOMI. ENT: Nares clear, no rhinorrhea or epistaxis. Mucous membranes moist. NECK: Supple. CHEST: Clear to auscultation. No respiratory distress. HEART: Regular rate and rhythm. No murmur heard. Normal peripheral pulses. ABDOMEN: Soft, nontender, nondistended, normal active bowel sounds. EXTREMITIES: Normal range of motion. No edema. SKIN: Warm, dry, no rash. NEURO: Alert and oriented x2, states it is May when asked the year; 5 out of 5 strength in all extremities, no sensory deficit, no facial droop, no dysarthria or aphasia PSYCH: Flat affect Course Vital Signs Vital signs: Vital Signs Temperature 98.3 F 07/15/22 12:42 Pulse Rate 108 H 07/15/22 12:42 Respiratory Rate 14 07/15/22 12:42 Blood Pressure 190/94 H 07/15/22 12:42 Pulse Oximetry 99 07/15/22 12:42 Oxygen Delivery Room Air 07/15/22 12:42 Temperature 98.1 F 07/18/22 06:00 Pulse Rate 79 07/18/22 06:00 Respiratory Rate 16 07/18/22 06:00 Blood Pressure 118/58 L 07/18/22 06:00 Pulse Oximetry 97 07/18/22 06:00 Oxygen Delivery Room Air 07/17/22 21:18 MDM - Altered Mental Status MDM Narrative Medical decision making narrative: Patient is a 67-year-old male presenting with confusion. Patient is hypertensive, otherwise vitals are within normal limits. CT head shows acute versus subacute infarct in left parietal area. Spoke with neurology who recommends CTA head neck. CTA head neck is concerning for severe stenosis involving left M1, concerning for an embolus. I spoke with Dr. Maloney at [facility] with their neuro stroke team who
[2022-07-15 13:52] LABS: Basophils Percent Auto 0.4 % (0.2-1.2); Eosinophils Percent Auto 0.6 % (0-4.4); Hematocrit 46.6 % (42.0-52.0); Hemoglobin 16.3 g/dL (14.0-18.0); Immature Granulocyte Absolute 0.02 K/mm3 (0.00-0.031); Immature Granulocyte Percent A 0.4 % (0-0.5); Mean Corpuscular Hemoglobin 29.7 pg (26-34); Mean Platelet Volume 10.2 fl (7.4-10.4); Monocytes Absolute Auto 0.2 K/mm3 (0.1-0.6); Monocytes Percent Auto 3.4 % (2.6-8.5); Neutrophils Absolute Auto 4.2 K/mm3 (1.3-6.7); Neutrophils Percent Auto 78.2 % (45.5-73.1); Platelet Count Result 236 k/mm3 (150-375); Red Blood Count 5.48 M/mm3 (4.6-6.20); Red Cell Distribution Width 13.6 % (11.5-14.5); White Blood Count 5.3 K/mm3 (4.5-10.0)
[2022-07-15 14:04] LABS: Alanine Aminotransferase 22 U/L (6-50); Albumin Level 4.5 g/dL (3.5-5.1); Alkaline Phosphatase 76 U/L (38-126); Anion Gap 6 mmol/L (8-16); Aspartate Amino Transferase 26 U/L (17-59); Bilirubin,Total 0.6 mg/dL (0.2-1.3); Blood Urea Nitrogen 12 mg/dL (9-20); Calcium 9.3 mg/dL (8.4-10.2); Carbon Dioxide 28 mmol/L (22-30); Chloride 103 mmol/L (98-107); Estimated CRCL calculation 56 ml/min; Estimated Glomerular Filt Rate > 60; Ethanol < 10 mg/dL (<10); Glucose 137 mg/dL (65-110); Potassium 3.7 mmol/L (3.4-5.0); Sodium 137 mmol/L (137-145)
[2022-07-15 14:06] LABS: INR 1.1; Partial Thromboplastin Time 28.2 SECONDS (22.3-36.8); Prothrombin Time 13.3 Seconds (11.1-14.7)
[2022-07-15 14:14] LABS: Ammonia < 9 umol/L (9-30)
[2022-07-15 14:41] LABS: Appearance Urine Cloudy (Clear); Bilirubin Urine Negative (Negative); Blood Urine Trace-intact (Negative); Color Urine Yellow (Yellow); Glucose Urine UA Negative (Negative); Ketones Urine Negative (Negative); Leukocyte Esterase Ur Negative LEU/UL (Negative); Nitrate Urine Negative (Negative); Protein Urine Negative (Negative); Urobilinogen Urine 0.2 mg/dL (<2.0); pH Urine 7.5 (5.0-9.0)
[2022-07-15 14:53] LABS: Amphetamine Screen Urine Negative (Negative); Barbiturate Screen Urine Negative (Negative); Benzodiazepines Screen Urine Negative (Negative); Cannabinoid Screen Urine Positive (Negative); Cocaine Screen Urine Negative (Negative); Methadone Screen Urine Negative (Negative); Opiate Screen Urine Negative (Negative); Phencyclidine Screen Urine Negative (Negative)
[2022-07-15 14:55] LABS: Amorphous Sediment Urine Moderate; Mucus Urine Rare /lpf; RBC Urine 21-50 /hpf (0-2); Squamous Epithelial Cell Urine Occasional /hpf (Few); WBC Urine 0-3 /hpf
[2022-07-15 15:05] LABS: Add Urine Microscopic? YES
--- NOTE | 2022-07-15 16:35 | PC.NURSE ---
hiliary pa at bedside for exam. pt remains confused to time and place.
--- NOTE | 2022-07-15 16:35 | PC.NURSE ---
pt ambulatory to bathroom without difficulty.
[2022-07-15 17:13] LABS: Influenza A QL RT-PCR Negative (Negative); Influenza B QL RT-PCR Negative (Negative); SARS-CoV-2 RNA PCR Negative
--- NOTE | 2022-07-15 19:00 | PM.IMHP ---
H&P: HPI History of Present Illness Date/Time: 07/15/22 17:00 Chief Complaint: Confusion. Narrative: This is a 67-year-old male with history of stroke who presented to the emergency department with his for evaluation of confusion. He is an unreliable historian and majority of the following is supplemented via a review of his electronic medical records as well as discussions with his sister. The patient had a stroke and September 2021 and he had issues with confusion at that time which apparently improved within a month or so. He was discharged under the care of his nephew but is my understanding that he is now living alone. The past 1 week he has once again become confused and he seems aware of the fact. For example he has been having difficulties requiring out how to access his bank account and paying bills. He has no specific complaints however and he denies headache, vertigo, auditory and visual changes, facial droop, difficulty speaking and swallowing, sensations of racing heart, palpitations, chest pain, shortness a breath, nausea, vomiting, diarrhea, dysuria. He has not had any falls or head trauma. He denies alcohol and illicit substance use. Blood pressure was 190/94 on arrival to the ED. Labs were reviewed and they are pretty unremarkable. He was positive for cannabinoids, ethyl alcohol level less than 10. He was negative for influenza and COVID. Brain CT showed a recent or subacute focal infarct in the posterior left parietal area and a subsequent CTA of the head and neck showed severe stenosis of left M1 middle cerebral artery suspicious for embolus. ED physician spoke with Dr. Maloney with the stroke team at [facility]. He did not feel the patient was a candidate for intervention at this time given the length of his symptoms and he recommends starting dual anti-platelet therapy. Review of Systems Review of Systems: Twelve systems were reviewed. He denies fever, chills, and sweats. Reports a mild frontal headache. Occasional balance issues though it sounds as though that was present with his previous stroke. He has not had any recent falls. [facility] Past Medical History Medical History (Updated 07/15/22 @ 22:48 by Sally Nettles PA-C) Cerebrovascular accident Dyslipidemia Hepatitis C Hypertension Surgical History Surgical History No significant past surgical history Family History Family History Other Unknown family medical history Social History Social History (Updated 07/15/22 @ 22:44 by Sally Nettles PA-C) Social History: Patient states he lives in his own home and [place]. He is single with no children. Brother Chris and sister Dianelys live nearby. He has a nephew that helps out if needed as well. Retired airline metal fitters and machinists. Smoked briefly as a young man. Denies alcohol abuse, drinks maybe 2 to 3 beers a couple of times a week. Occasional marijuana use. Surrogate decision maker: Alyce Bauer (nephew). Code status: Full code. Spiritual care concerns: No Meds Home Medications and Allergies Home Medications Medication Instructions Recorded Confirmed Type No Home Medications 07/15/22 07/15/22 History Allergies Allergy/AdvReac Type Severity Reaction Status Date / Time NKDA Allergy Mild Unknown Uncoded 10/15/21 21:06 Vital Signs Vital Signs - 24 hr 07/15/22 12:42 07/15/22 13:07 07/15/22 13:08 Temperature 98.3 F Pulse Rate 108 H 100 92 Respiratory Rate 14 16 Blood Pressure 190/94 H 176/86 H Pulse Oximetry 99 100 Oxygen Delivery Room Air 07/15/22 17:00 07/15/22 19:12 07/15/22 20:00 Temperature 96.3 F L Pulse Rate 80 65 73 Respiratory Rate 16 18 Blood Pressure 145/69 H 182/86 H Pulse Oximetry 99 Oxygen Delivery 07/15/22 22:00 Temperature 98.1 F Pulse Rate 73 Respiratory Rate 16 Blood Pressure 168/81 H Pulse Oximetry 99 Oxygen Delivery
--- NOTE | 2022-07-15 19:07 | PC.NURSE ---
This patient, Galo Gurrola, was admitted to Medical Room 346-01. Patient/family oriented to hospital policies and general routines including ID bracelet, bed and alarms, visiting hours, pain management, procedures, bathroom and other care routines, personal items, smoking policy, room service/diet, and visiting hours. Information on how to activate the Rapid Response Team has been discussed. Patient/Family are encouraged to report perceived risks to care and to ask questions if they do not understand what they are told or what they should do.
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
[2022-07-16] VITALS (8 sets, daily range): BP systolic 126–182; BP diastolic 61–84; PULSE 47–78; RESP 16; TEMP 36.6–36.7; O2SAT 99–100
--- NOTE | 2022-07-16 | ECHO_ITS ---
Patient Info Name: Galo Gurrola Age: 67 years : 1955 Gender: Male Ht: 69 in Wt: 196 lbs BSA: 2.10 m2 HR: 58 bpm BP: 159 / 79 mmHg Technical Quality: Fair Exam Date: 07/16/2022 2:14 PM Exam Location: [facility] Room: [facility] Patient Status: Inpatient Admit Date: 07/15/2022 Staff Ordering Physician: Ailin Richard MD Hatch Supervisor: Jamia Head RDCS Attending Provider: Chino Perry MD Exam Type: CA echo doppler w bubble study Study Info Indications - acute stroke Complete two-dimensional, color flow and Doppler transthoracic echocardiogram is performed with agitated saline. Summary 1. Left ventricular chamber dimension is normal. 2. Left ventricular systolic function is normal, estimated at 65-70%. 3. The left ventricular diastolic function is grade I diastolic dysfunction. 4. E/e' 9 is minimally elevated. 5. There is mild aortic valve sclerosis. 6. No pulmonary hypertension, estimated pulmonary arterial systolic pressure is 21 mmHg. Left Ventricle E/e' 9 is minimally elevated. Left ventricular chamber dimension is normal. Left ventricular systolic function is normal, estimated at 65-70%. The left ventricular diastolic function is grade I diastolic dysfunction. Right Ventricle Right ventricular chamber dimension is normal. Right ventricular systolic function is normal. Left Atria Left atrial chamber dimension is normal. Right Atria Right atrial chamber dimension is normal. Atrial Septum Agitated saline injection with and without valsalva maneuver opacified right side cardiac chambers without shunt to left side cardiac chambers. Intact interatrial septum visualized by 2D and agitated saline imaging. Aortic Valve The aortic valve is trileaflet. There is mild aortic valve sclerosis. There is no aortic valve stenosis. There is no aortic valve regurgitation. Pulmonic Valve There is no pulmonic regurgitation. Mitral Valve There is no mitral valve stenosis. There is no mitral valve regurgitation. Tricuspid Valve There is no tricuspid valve regurgitation. No pulmonary hypertension, estimated pulmonary arterial systolic pressure is 21 mmHg. Pericardium/Pleural There is no pericardial effusion. Inferior Vena Cava Normal inferior vena cava with >50% collapse upon inspiration consistent with normal right atrial pressure, 5 mmHg. Aorta The aortic root size at the sinus of Valsalva is normal. Left Ventricular Outflow Tract Name Value Normal LVOT 2D LVOT Diameter 2.1 cm LVOT Doppler LVOT Peak Gradient 5 mmHg LVOT Mean Gradient 3 mmHg LVOT VTI 26 cm LVOT VTI/AV VTI Ratio 0.8 LVOT Stroke Volume 90 ml LVOT CO 17.7 l/min LVOT CI 8.4 l/min/m2 Pulmonic Valve Name Value Normal
[2022-07-16] MEDS: ASPIRIN 81 MG CHEWABLE TABLET 324 MG PO (00:04)
[2022-07-16 00:39] LABS: LDL Cholesterol Direct 82 mg/dL
[2022-07-16 00:41] LABS: HDL Direct 42 mg/dL; Triglycerides 76 mg/dL (<150)
[2022-07-16 02:45] LABS: Cholesterol 152 mg/dL (0-200)
[2022-07-16 06:12] LABS: Hemoglobin 14.4 g/dL (14.0-18.0); Mean Corpuscular HGB Conc 35.1 g/dl (32-36); Mean Corpuscular Hemoglobin 29.5 pg (26-34); Mean Platelet Volume 9.1 fl (7.4-10.4); Platelet Count Result 225 k/mm3 (150-375); Red Blood Count 4.88 M/mm3 (4.6-6.20); Red Cell Distribution Width 13.4 % (11.5-14.5)
[2022-07-16 06:26] LABS: Anion Gap 2 mmol/L (8-16); Blood Urea Nitrogen 14 mg/dL (9-20); Calcium 8.8 mg/dL (8.4-10.2); Carbon Dioxide 28 mmol/L (22-30); Chloride 108 mmol/L (98-107); Estimated CRCL calculation 68 ml/min; Estimated Glomerular Filt Rate > 60; Glucose 93 mg/dL (65-110); Magnesium 2.2 mg/dL (1.6-2.3); Potassium 3.6 mmol/L (3.4-5.0); Sodium 138 mmol/L (137-145)
[2022-07-16] MEDS: CLOPIDOGREL BISULFATE 75 MG TABLET PO (10:10)
[2022-07-16] MEDS: ASPIRIN 81 MG ENTERIC TABLET PO (10:10)
[2022-07-16] MEDS: ATORVASTATIN 40 MG TABLET PO (10:10)
--- NOTE | 2022-07-16 10:15 | P.PNIM_ITS ---
Progress Note: A&P Assessment and Plan (1) Cerebrovascular accident: Code(s): I63.9 - Cerebral infarction, unspecified Status: Acute Assessment and Plan: The patient presented to the emergency department accompanied by his sister for evaluation of confusion over the past 1 week. * CT brain: subacute infarction * CTA brain: suspected embolus in the left M1 mieddle cerebral artery * MRI ordered * Echo ordered * Case discussed with stroke team at [facility] who states pt is not a candidate for intervention given deration of symptoms * Pt started on Aspirin, clopidogrel and statin * Neurology consulted * Pt NPO, Speech eval ordered -regular diet recommended * Speech communication orders put in due to patient's aphasia. * Patient will likely has be discharged for facility. * PT OT ordered (2) Left middle cerebral artery embolism: Code(s): I66.02 - Occlusion and stenosis of left middle cerebral artery Status: Acute Assessment and Plan: See above (3) Hypertension: Code(s): I10 - Essential (primary) hypertension Status: Acute Assessment and Plan: Chronic * HTN stable for now * hold home medications (4) Confusion: Code(s): R41.0 - Disorientation, unspecified Status: Acute Assessment and Plan: The patient presented to the emergency department accompanied by his sister for evaluation of confusion over the past 1 week. * Pt afebrile w/ normal WBC count * Urine drug screen positive for cannabis * ammonia level undetectable * B12 low at 268 - single dose IM b12 then PO 1000mcg after for total of 4 weeks (5) Dyslipidemia: Code(s): E78.5 - Hyperlipidemia, unspecified Status: Acute Assessment and Plan: Atorvastatin 40 mg started * lipid panel WNL Subjective Date/time seen: 07/16/22 10:15 Interval history: 07/16/22 67-year-old male with history of a CVA and September of 2021. Patient found to have CVA in the M1 middle cerebral artery and was not a candidate for tPA. Patient has what appears to be dysphagia and difficulty with memory. Patient appears to be fine until asking him more than just yes and no questions. Patient does not appear to be at his well. When discussing with nurse and looking through patient's chart it is not clear whether patient has a power of ticketer or what his living situation is. Patient only alert and oriented to self. Patient had to be prompted or did not know where he was, his situational circumstances, time of the year and stated to nurse that it was 1968. From what I gathered this is no where near his normal. Review of Systems Review of Systems: All systems reviewed & are unremarkable except as noted in HPI and below Exam Narrative: GENERAL: Comfortable, no acute distress HENMT: moist mucous membranes EYES: EOM intact b/l NECK: no lymphadenopathy RESPIRATORY: clear to auscultation CARDIO: RRR GI: soft, nontender, bowel sounds present SKIN: no rashes EXTREMITIES: no edema, redness or tenderness NEURO: A&O x1 to self, easily distracted, no facial droop, to light and deep touch sensation intact, [id number] intact, unable to test past pointing due to poor direction following. Objective Data Vital Signs Vital Signs: Vital Signs - 24 hr 07/15/22 12:42 07/15/22 13:07 07/15/22 13:08 Temperature 98.3 F Pulse Rate
--- NOTE | 2022-07-16 10:15 | PM.IMPN ---
Progress Note: A&P Assessment and Plan (1) Cerebrovascular accident: Code(s): I63.9 - Cerebral infarction, unspecified Status: Acute Assessment and Plan: The patient presented to the emergency department accompanied by his sister for evaluation of confusion over the past [address] brain: subacute infarction CTA brain: suspected embolus in the left M1 mieddle cerebral artery MRI ordered Echo ordered Case discussed with stroke team at [facility] who states pt is not a candidate for intervention given deration of symptoms Pt started on Aspirin, clopidogrel and statin Neurology consulted Pt NPO, Speech eval ordered -regular diet recommended Speech communication orders put in due to patient's aphasia. Patient will likely has be discharged for facility. PT OT ordered (2) Left middle cerebral artery embolism: Code(s): I66.02 - Occlusion and stenosis of left middle cerebral artery Status: Acute Assessment and Plan: See above (3) Hypertension: Code(s): I10 - Essential (primary) hypertension Status: Acute Assessment and Plan: Chronic HTN stable for now hold home medications (4) Confusion: Code(s): R41.0 - Disorientation, unspecified Status: Acute Assessment and Plan: The patient presented to the emergency department accompanied by his sister for evaluation of confusion over the past 1 week. Pt afebrile w/ normal WBC count Urine drug screen positive for cannabis ammonia level undetectable B12 low at 268 - single dose IM b12 then PO 1000mcg after for total of 4 weeks (5) Dyslipidemia: Code(s): E78.5 - Hyperlipidemia, unspecified Status: Acute Assessment and Plan: Atorvastatin 40 mg started lipid panel WNL Subjective Date/time seen: 07/16/22 10:15 Interval history: 07/16/22 67-year-old male with history of a CVA and September of 2021. Patient found to have CVA in the M1 middle cerebral artery and was not a candidate for tPA. Patient has what appears to be dysphagia and difficulty with memory. Patient appears to be fine until asking him more than just yes and no questions. Patient does not appear to be at his well. When discussing with nurse and looking through patient's chart it is not clear whether patient has a power of deputy commonwealth's attorney or what his living situation is. Patient only alert and oriented to self. Patient had to be prompted or did not know where he was, his situational circumstances, time of the year and stated to nurse that it was 1970. From what I gathered this is no where near his normal. Review of Systems Review of Systems: All systems reviewed & are unremarkable except as noted in HPI and below Exam Narrative: GENERAL: Comfortable, no acute distress HENMT: moist mucous membranes EYES: EOM intact b/l NECK: no lymphadenopathy RESPIRATORY: clear to auscultation CARDIO: RRR GI: soft, nontender, bowel sounds present SKIN: no rashes EXTREMITIES: no edema, redness or tenderness NEURO: A&O x1 to self, easily distracted, no facial droop, to light and deep touch sensation intact, [id number] intact, unable to test past pointing due to poor direction following. Objective Data Vital Signs Vital Signs: Vital Signs - 24 hr 07/15/22 12:42 07/15/22 13:07 07/15/22 13:08 Temperature 98.3 F Pulse Rate 108 H 100 92 Respiratory Rate 14 16 Blood Pressure 190/94 H 176/86 H Pulse Oximetry 99 100 Oxygen Delivery Room Air 07/15/22 17:00 07/15/22 19:12 07/15/22 20:00 Temperature 96.3 F L Pulse Rate 80 65 73 Respiratory Rate 16 18 Blood Pressure 145/69 H 182/86 H Pulse Oximetry 99 Oxygen Delivery 07/15/22 22:00 07/16/22 00:00 07/16/22 04:00 Temperature 98.1 F Pulse Rate 73 78 47 L Respiratory Rate 16 Blood Pressure 168/81 H Pulse Oximetry 99 Oxygen Delivery 07/16/22 06:00 Temperature 98.1 F Pulse Rate 70 Respiratory Rate 16
--- NOTE | 2022-07-16 11:48 | WPDNEURCNPN ---
Assessment and Plan Assessment and plan (1) Left middle cerebral artery embolism: Code(s): I66.02 - Occlusion and stenosis of left middle cerebral artery Status: Acute (2) Cerebrovascular accident: Code(s): I63.9 - Cerebral infarction, unspecified Status: Acute (3) Confusion: Code(s): R41.0 - Disorientation, unspecified Status: Acute (4) Dyslipidemia: Code(s): E78.5 - Hyperlipidemia, unspecified Status: Acute (5) Hypertension: Code(s): I10 - Essential (primary) hypertension Status: Acute Plan Galo Gurrola is a 67 year old male with a history of prior stroke, hepatitis C infection, hypertension, hyperlipidemia who presented yesterday due to confusion. He was found to have L MCA embolism as well as left parietal acute infarct. - MRI brain w/o contrast - Surface echocardiogram with bubble study - ASA 81mg and Plavix 75mg x 3 months, then Aspirin 81mg monotherapy - Agree with addition of Lipitor 40mg daily Consult date: 07/16/22 Reason for consult: Stroke HPI: Galo Gurrola is a 67 year old male with a history of prior stroke, hepatitis C infection, hypertension, hyperlipidemia who presented yesterday due to confusion. Patient had a stroke in September 2021 and reportedly had problems with confusion at the time. He was not taking any blood thinners after the stroke. Patient currently lives alone and the for the past week he has been having more confusion such as difficulty accessing bank account and paying his bills. He denies any other neurological complains such as focal weakness/numbness, speech or vision changes, dysarthria or dysphagia. On arrival to the ED his blood pressure was in the 190s systolic. Labs were significant for UDS positive for cannabinoids. He was negative for influenza and COVID. CT head showed subacute infarct in the left parietal region and old infarct in the left basal ganglia/internal capsule, and CTA brain/carotid showed severe stenosis of the L MCA suspicious for embolus but 0% stenosis in bilateral proximal ICAs. ED physician discussed case with [facility] stroke attending. Patient was not candidate for intervention given his symptoms had been going on for a week. He was started on DAPT as well as Lipitor 40mg and subsequently admitted. His lab work was also significant for low Vitamin B12, which is currently being supplemented. His LDL is 82. Patient does not have any recollection of the events of last week. He does remember his parents' or siblings' names but did remember his birthday and where he was born. Review of Systems Review of Systems: ROS unobtainable: Yes unobtainable due to medical condition PMFSH Past Medical History Medical History Cerebrovascular accident Dyslipidemia Hepatitis C Hypertension Surgical History Surgical History No significant past surgical history Family History Family History Other Unknown family medical history Social History Social History Social History: Patient states he lives in his own home and [place]. He is single with no children. Brother Chris and sister Dianelys live nearby. He has a nephew that helps out if needed as well. Retired airline machinist wood. Smoked briefly as a young man. Denies alcohol abuse, drinks maybe 2 to 3 beers a couple of times a week. Occasional marijuana use. Surrogate decision maker: Alyce Bauer (nephew). Code status: Full code. Spiritual care concerns: No Meds Home Medications and Allergies Home Medications Medication Instructions Recorded Confirmed Type No Home Medications 07/15/22 07/15/22 History Allergies Allergy/AdvReac Type Severity Reaction Status Date / Time NKDA Allergy Mild Unknown Uncoded 10/15/21 21:06 Vital Signs Vital S
--- NOTE | 2022-07-16 12:45 | PCSTNOTE ---
Please refer to the Bedside Swallow Evaluation in the EMR. Please note, silent aspiration cannot be ruled out at bedside.
[2022-07-16] MEDS: CYANOCOBALAMIN 1,000 MCG TABLET 1000 MCG PO (13:14)
--- NOTE | 2022-07-16 14:36 | PC.NURSE ---
Spoke with MRI about patient and the order. Patient is a poor historian. Sister is at bedside and is stating that Aisha Rushing is his POA. Patient has two phone numbers for Aisha Rushing in his phone but the first number was the wrong person and second number did not go through. RN is unable to reach said POA at this time.
[2022-07-17] VITALS (10 sets, daily range): BP systolic 119–127; BP diastolic 60–66; PULSE 51–80; RESP 16–22; TEMP 36.5–36.7; O2SAT 93–99
[2022-07-17 05:57] LABS: Hematocrit 42.6 % (42.0-52.0); Hemoglobin 14.6 g/dL (14.0-18.0); Mean Corpuscular HGB Conc 34.3 g/dl (32-36); Mean Corpuscular Hemoglobin 29.5 pg (26-34); Mean Corpuscular Volume 86.1 fl (80-100); Platelet Count Result 207 k/mm3 (150-375); Red Blood Count 4.95 M/mm3 (4.6-6.20); Red Cell Distribution Width 13.5 % (11.5-14.5); White Blood Count 4.9 K/mm3 (4.5-10.0)
[2022-07-17 06:07] LABS: Alanine Aminotransferase 18 U/L (6-50); Albumin Level 3.8 g/dL (3.5-5.1); Alkaline Phosphatase 72 U/L (38-126); Anion Gap 6 mmol/L (8-16); Aspartate Amino Transferase 21 U/L (17-59); Bilirubin,Total 0.7 mg/dL (0.2-1.3); Blood Urea Nitrogen 14 mg/dL (9-20); Calcium 8.6 mg/dL (8.4-10.2); Carbon Dioxide 26 mmol/L (22-30); Chloride 107 mmol/L (98-107); Estimated CRCL calculation 68 ml/min; Estimated Glomerular Filt Rate > 60; Glucose 98 mg/dL (65-110); Potassium 3.8 mmol/L (3.4-5.0); Sodium 139 mmol/L (137-145)
[2022-07-17] MEDS: ASPIRIN 81 MG ENTERIC TABLET PO (08:34)
[2022-07-17] MEDS: CYANOCOBALAMIN 1,000 MCG TABLET 1000 MCG PO (08:34)
[2022-07-17] MEDS: CLOPIDOGREL BISULFATE 75 MG TABLET PO (08:34)
[2022-07-17] MEDS: ATORVASTATIN 40 MG TABLET PO (08:34)
--- NOTE | 2022-07-17 09:19 | P.PNIM_ITS ---
Progress Note: A&P Assessment and Plan (1) Cerebrovascular accident: Code(s): I63.9 - Cerebral infarction, unspecified Status: Acute Assessment and Plan: The patient presented to the emergency department accompanied by his sister for evaluation of confusion over the past 1 week. Patient has history of stroke in September of 2021 but states he has not been on any medication. * CT brain: subacute infarction * CTA brain: suspected embolus in the left M1 mieddle cerebral artery * MRI: Infarct involving left temporal lobe, left parietal lobe, left frontal parietal region and left temporal occipital region. Old infarct involving the left basal ganglia and inferior limb left internal capsule. Chronic small- vessel ischemic disease. * Echo: EF 65-70%, grade 1 diastolic dysfunction, no pulmonary hypertension, no PFO noted. * Case discussed with stroke team at [facility] who states pt is not a candidate for intervention given deration of symptoms * Pt started on Aspirin, clopidogrel and statin * Neurology consulted * Pt NPO, Speech eval ordered -regular diet recommended * Speech communication orders put in due to patient's aphasia. * Speech recommends patient to be discharged to SNF * PT/OT ordered * Do not believe patient is safe to go home to independent living. (2) Left middle cerebral artery embolism: Code(s): I66.02 - Occlusion and stenosis of left middle cerebral artery Status: Acute Assessment and Plan: See above (3) Hypertension: Code(s): I10 - Essential (primary) hypertension Status: Acute Assessment and Plan: Chronic * HTN stable for now * hold home medications (4) Confusion: Code(s): R41.0 - Disorientation, unspecified Status: Acute Assessment and Plan: The patient presented to the emergency department accompanied by his sister for evaluation of confusion over the past 1 week. * Pt afebrile w/ normal WBC count * Urine drug screen positive for cannabis * ammonia level undetectable * B12 low at 268 - single dose IM b12 then PO 1000mcg after for total of 4 weeks (5) Dyslipidemia: Code(s): E78.5 - Hyperlipidemia, unspecified Status: Acute Assessment and Plan: Atorvastatin 40 mg started * lipid panel WNL Subjective Date/time seen: 07/17/22 09:19 Interval history: Patient up to the chair during interview. Patient is still very confused is not aware of situation, where he is or the time of year. Patient unable to state the year of his they or his falling. Patient denies being any pain, generalized weakness, nausea, vomiting, chest pain, shortness a breath. Patient does have mild headache and difficulty with memory. Patient is a very poor historian Review of Systems Review of Systems: All systems reviewed & are unremarkable except as noted in HPI and below Exam Narrative: GENERAL: Comfortable, no acute distress HENMT: moist mucous membranes EYES: EOM intact b/l NECK: no lymphadenopathy RESPIRATORY: clear to auscultation CARDIO: RRR GI: soft, nontender, bowel sounds present SKIN: no rashes EXTREMITIES: no edema, redness or tenderness NEURO: A&O x1 to self, easily distracted, no facial droop, to light and deep touch sensation intact, [id number] intact, unable to test past pointing due to poor direction following. Objective Data Vital Signs Vital Signs: Vital Signs - 24
--- NOTE | 2022-07-17 09:19 | PM.IMPN ---
Progress Note: A&P Assessment and Plan (1) Cerebrovascular accident: Code(s): I63.9 - Cerebral infarction, unspecified Status: Acute Assessment and Plan: The patient presented to the emergency department accompanied by his sister for evaluation of confusion over the past 1 week. Patient has history of stroke in September of 2021 but states he has not been on any medication. CT brain: subacute infarction CTA brain: suspected embolus in the left M1 mieddle cerebral artery MRI: Infarct involving left temporal lobe, left parietal lobe, left frontal parietal region and left temporal occipital region. Old infarct involving the left basal ganglia and inferior limb left internal capsule. Chronic small-vessel ischemic disease. Echo: EF 65-70%, grade 1 diastolic dysfunction, no pulmonary hypertension, no PFO noted. [facility] discussed [facility] who states pt is not a candidate for intervention given deration of symptoms Pt started on Aspirin, clopidogrel and statin Neurology consulted Pt NPO, Speech eval ordered -regular diet recommended Speech communication orders put in due to patient's aphasia. Speech recommends patient to be discharged to SNF PT/OT ordered Do not believe patient is safe to go home to independent living. (2) Left middle cerebral artery embolism: Code(s): I66.02 - Occlusion and stenosis of left middle cerebral artery Status: Acute Assessment and Plan: See above (3) Hypertension: Code(s): I10 - Essential (primary) hypertension Status: Acute Assessment and Plan: Chronic HTN stable for now hold home medications (4) Confusion: Code(s): R41.0 - Disorientation, unspecified Status: Acute Assessment and Plan: The patient presented to the emergency department accompanied by his sister for evaluation of confusion over the past 1 week. Pt afebrile w/ normal WBC count Urine drug screen positive for cannabis ammonia level undetectable B12 low at 268 - single dose IM b12 then PO 1000mcg after for total of 4 weeks (5) Dyslipidemia: Code(s): E78.5 - Hyperlipidemia, unspecified Status: Acute Assessment and Plan: Atorvastatin 40 mg started lipid panel WNL Subjective Date/time seen: 07/17/22 09:19 Interval history: Patient up to the chair during interview. Patient is still very confused is not aware of situation, where he is or the time of year. Patient unable to state the year of his they or his falling. Patient denies being any pain, generalized weakness, nausea, vomiting, chest pain, shortness a breath. Patient does have mild headache and difficulty with memory. Patient is a very poor historian Review of Systems Review of Systems: All systems reviewed & are unremarkable except as noted in HPI and below Exam Narrative: GENERAL: Comfortable, no acute distress HENMT: moist mucous membranes EYES: EOM intact b/l NECK: no lymphadenopathy RESPIRATORY: clear to auscultation CARDIO: RRR GI: soft, nontender, bowel sounds present SKIN: no rashes EXTREMITIES: no edema, redness or tenderness NEURO: A&O x1 to self, easily distracted, no facial droop, to light and deep touch sensation intact, [id number] intact, unable to test past pointing due to poor direction following. Objective Data Vital Signs Vital Signs: Vital Signs - 24 hr 07/16/22 15:08 07/16/22 12:00 07/16/22 20:00 Temperature 97.8 F Pulse Rate 59 L 68 69 Respiratory Rate 16 Blood Pressure 182/84 H Pulse Oximetry 100 Oxygen Delivery 07/16/22 22:00 07/17/22 00:00 07/17/22 04:00 Temperature 98.1 F Pulse Rate 70 51 L 56 L Respiratory Rate 16 Blood Pressure 126/61 Pulse Oximetry 99 Oxygen Delivery 07/17/22 06:00 07/17/22 08:00 07/17/22 08:00 Temperature 98.0 F Pulse Rate 71 58 L Respiratory Rate 16 Blood Pressure 127/60 Pulse Oximetry 99
--- NOTE | 2022-07-17 10:29 | WPDNEUROPN ---
Progress Note: A&P Assessment and Plan (1) Confusion: Code(s): R41.0 - Disorientation, unspecified Status: Acute (2) Left middle cerebral artery embolism: Code(s): I66.02 - Occlusion and stenosis of left middle cerebral artery Status: Acute (3) Dyslipidemia: Code(s): E78.5 - Hyperlipidemia, unspecified Status: Acute (4) Hypertension: Code(s): I10 - Essential (primary) hypertension Status: Acute (5) Cerebrovascular accident: Code(s): I63.9 - Cerebral infarction, unspecified Status: Acute Plan Galo Gurrola is a 67 year old male with a history of prior stroke, hepatitis C infection, hypertension, hyperlipidemia who presented yesterday due to confusion. He was found to have L MCA embolism as well as left L MCA territory stroke. - ASA 81mg and Plavix 75mg x 3 months, then Aspirin 81mg monotherapy - Agree with addition of Lipitor 40mg daily Subjective Date/time seen: 07/17/22 10:29 Interval history: Galo Gurrola is a 67 year old male with a history of prior stroke, hepatitis C infection, hypertension, hyperlipidemia who presented yesterday due to confusion. Patient had a stroke in September 2021 and reportedly had problems with confusion at the time. He was not taking any blood thinners after the stroke. Patient currently lives alone and the for the past week he has been having more confusion such as difficulty accessing bank account and paying his bills. He denies any other neurological complains such as focal weakness/numbness, speech or vision changes, dysarthria or dysphagia. On arrival to the ED his blood pressure was in the 190s systolic. Labs were significant for UDS positive for cannabinoids. He was negative for influenza and COVID. CT head showed subacute infarct in the left parietal region and old infarct in the left basal ganglia/internal capsule, and? CTA brain/carotid showed severe stenosis of the L MCA suspicious for embolus but 0% stenosis in bilateral proximal ICAs. ED physician discussed case with [facility] stroke attending. Patient was not candidate for intervention given his symptoms had been going on for a week. He was started on DAPT as well as Lipitor 40mg and subsequently admitted. His lab work was also significant for low Vitamin B12, which is currently being supplemented. His LDL is 82. Patient feels about the same as yesterday. MRI showed patchy areas of acute infarct in the L temporal lobe, L parietal lobe, L frontal parietal region and left temporal occipital region. Surface echo was unrevealing. Review of Systems Review of Systems: ROS unobtainable: Yes unobtainable due to medical condition Exam Const: General: comfortable and no acute distress HENMT: Mouth: Yes moist mucous membranes Eyes: Pupils: Equal, round and reactive pupils present EOM: EOMs intact bilaterally Resp: Effort & Inspection: normal respiratory effort Auscultation: clear to auscultation bilaterally Cardio: Rate: regular rate Rhythm: regular rhythm GI: GI Palp: Yes Soft to palpation Auscultation: normal bowel sounds Skin: General skin exam: normal color Neuro: Other: AOx1 (person only), PERRL, EOMI, face symmetric, difficulty with naming, fluent aphasia, comprehension and repetition are somewhat intact, strength is symmetric and intact, sensation is symmetric. FNF intact bilaterally. Extrem: General: normal to inspection Objective Data Vital Signs Vital Signs: Vital Signs - 24 hr 07/16/22 15:08 07/16/22 12:00 07/16/22 20:00 Temperature 36.6 C Pulse Rate 59 L 68 69 Respiratory Rate 16 Blood Pressure 182/84 H Pulse Oximetry 100 Oxygen Delivery 07/16/22 22:00 07/17/22 00:00 07/17/22 04:00 Temperature 36.7 C Pulse Rate 70 51 L 56 L Respiratory Rate 16 Blood Pressure 126/61 Pulse Oximetry 99 Oxygen Delivery 07/17/22 06:00 07/17/22 08:00 07/17/22 08:00 Temperature 36.7 C Pulse Rate 71 58 L Respiratory Rate 16
[2022-07-18] VITALS: PULSE 56
[2022-07-18 04:00] VITALS: PULSE 62
[2022-07-18 05:52] LABS: Hematocrit 43.7 % (42.0-52.0); Hemoglobin 15.3 g/dL (14.0-18.0); Mean Corpuscular Hemoglobin 29.9 pg (26-34); Mean Corpuscular Volume 85.4 fl (80-100); Mean Platelet Volume 8.8 fl (7.4-10.4); Platelet Count Result 208 k/mm3 (150-375); Red Blood Count 5.12 M/mm3 (4.6-6.20); Red Cell Distribution Width 13.2 % (11.5-14.5); White Blood Count 4.7 K/mm3 (4.5-10.0)
[2022-07-18 06:00] VITALS: BP 118/58; PULSE 79; RESP 16; TEMP 36.7; O2SAT 97
[2022-07-18 06:05] LABS: Alanine Aminotransferase 18 U/L (6-50); Albumin Level 3.8 g/dL (3.5-5.1); Alkaline Phosphatase 75 U/L (38-126); Anion Gap 2 mmol/L (8-16); Aspartate Amino Transferase 19 U/L (17-59); Bilirubin,Total 0.7 mg/dL (0.2-1.3); Blood Urea Nitrogen 16 mg/dL (9-20); Calcium 8.9 mg/dL (8.4-10.2); Carbon Dioxide 27 mmol/L (22-30); Chloride 107 mmol/L (98-107); Estimated CRCL calculation 68 ml/min; Estimated Glomerular Filt Rate > 60; Glucose 96 mg/dL (65-110); Potassium 3.5 mmol/L (3.4-5.0); Sodium 136 mmol/L (137-145)
[2022-07-18] MEDS: CYANOCOBALAMIN 1,000 MCG TABLET 1000 MCG PO (09:17)
[2022-07-18] MEDS: ASPIRIN 81 MG ENTERIC TABLET PO (09:17)
[2022-07-18] MEDS: ATORVASTATIN 40 MG TABLET PO (09:18)
[2022-07-18] MEDS: CLOPIDOGREL BISULFATE 75 MG TABLET PO (09:18)
--- NOTE | 2022-07-18 13:38 | PM.DS ---
DS: Admitting Diagnosis Discharge Date 07/18/22 Admitting Diagnosis CVA DS: Discharge Diagnosis Discharge Diagnosis (1) Cerebrovascular accident: Code(s): I63.9 - Cerebral infarction, unspecified Status: Acute Assessment and Plan: The patient presented to the emergency department accompanied by his sister for evaluation of confusion over the past 1 week. Patient has history of stroke in September of 2021 but states he has not been on any medication. CT brain: subacute infarction CTA brain: suspected embolus in the left M1 mieddle cerebral artery MRI: Infarct involving left temporal lobe, left parietal lobe, left frontal parietal region and left temporal occipital region. Old infarct involving the left basal ganglia and inferior limb left internal capsule. Chronic small-vessel ischemic disease. Echo: EF 65-70%, grade 1 diastolic dysfunction, no pulmonary hypertension, no PFO noted. [facility] discussed [facility] who states pt is not a candidate for intervention given deration of symptoms Pt started on Aspirin, clopidogrel and statin Neurology consulted Pt NPO, Speech eval ordered -regular diet recommended Speech communication orders put in due to patient's aphasia. Speech recommends patient to be discharged to SNF PT/OT ordered Do not believe patient is safe to go home to independent living. Discussed in length with family the importance of patient's safety and health and that I do not believe he should be living alone. Discussed the importance of a 24/7 caregiver. Stated that patient should not be driving for safety reasons. Patient has a very difficult time with memory and has aphasia. Patient's nephew and nephew's verbalizes understanding and stated that they would stay with patient or patient would be moving into their home. Discussed options such as assisted living and they agreed that they would discuss this with the patient. (2) Left middle cerebral artery embolism: Code(s): I66.02 - Occlusion and stenosis of left middle cerebral artery Status: Acute Assessment and Plan: See above (3) Hypertension: Code(s): I10 - Essential (primary) hypertension Status: Acute Assessment and Plan: Chronic HTN stable for now hold home medications (4) Confusion: Code(s): R41.0 - Disorientation, unspecified Status: Acute Assessment and Plan: The patient presented to the emergency department accompanied by his sister for evaluation of confusion over the past 1 week. Pt afebrile w/ normal WBC count Urine drug screen positive for cannabis ammonia level undetectable B12 low at 268 - single dose IM b12 then PO 1000mcg after for total of 4 weeks (5) Dyslipidemia: Code(s): E78.5 - Hyperlipidemia, unspecified Status: Acute Assessment and Plan: Atorvastatin 40 mg started lipid panel WNL DS: Summary Hospital Course Reason for hospitalization: CVA Hospital Course: 67-year-old male with history of CVA in September of 2021 present to the ER on 07/15/2022 due to acute confusion. Patient had confusion for the past week before presentation. Patient not known to have any acute falls. Patient having difficulty accessing his bank account pain pills. Patient denies alcohol or illicit drug use. Patient blood pressure 190/94 on arrival to the ED. CT revealed subacute focal infarct in the posterior left parietal area and the subsequent CTA of the head and neck revealed severe stenosis of the left M1 middle cerebral artery suspicious for embolus. Patient not a candidate for tPA due to unknown last normal. MRI revealed Infarct involving left temporal lobe, left parietal lobe, left frontal parietal region and left temporal occipital region.? Old infarct involving the left basal ganglia and inferior limb left internal capsule.? Chronic small-vessel ischemic disease. Echo revealed EF of 65-70% with gr
== END 2022-07-18 14:40 | disposition home health service (06) | DRG 66 ==
LOC: ANHED 13:20 → ANH3MED 16:15
PROVIDERS: Physician Assistant; Admitting Provider Internal Medicine; Emergency Provider Emergency Medicine; PCP Internal Medicine; Visit Provider Internal Medicine Critical Care Medicine
DX: I63.412 Cerebral infarction due to embolism of left middle cerebral artery (principal); R47.01 Aphasia; E78.5 Hyperlipidemia, unspecified; I10 Essential (primary) hypertension; Z20.822 Contact with and (suspected) exposure to COVID-19; Z28.21 Immunization not carried out because of patient refusal; Z86.73 Personal history of transient ischemic attack (TIA), and cerebral infarction without residual deficits; Z87.891 Personal history of nicotine dependence; Z86.19 Personal history of other infectious and parasitic diseases
CPT/HCPCS: 36415; 70450; 70496; 70498; 70551; 71045; 80048; 80053; 80061; 80307; 81001; 82140; 82607; 83735; 84443; 85025; 85027; 85610; 85730; 87636; 92507; 92523; 92610; 93306; 96375; 97162; 97165; 99285; A9270; G0378; Q9967